=== PATIENT | female | born 1985 | race Caucasian/White ===

== ENCOUNTER 2017-05-12 08:07 | Inpatient (IN) | payer OTHER ==
[~2017-05-12 08:07] MED LIST: Dinoprostone* 10 MG VAG.SUPP VAGINAL ONE
--- NOTE | 2017-05-12 09:36 | PN ---
L&D Outpatient: Visit - Reproductive Information Estimated Due Date: 05/07/17 Gestational Age: 40 Weeks and 5 Days : 1 - Reason for Visit Visit Reason: Postdates cervical ripening in the presence of gestational hypertension - Antepartal Records Antepartal Record: Reviewed, Complicated by: - gestational hypertension at term - Patient History Patient History Significant: Yes Patient History Significant For: Anxiety L&D Outpatient: ROS - Review of Systems Constitutional: Comfortable CV Complaint: No Respiratory: Shortness of Breath: No Gastrointestinal: No Nausea/Vomiting Genitourinary: No Dysuria Musculoskeletal: No Complaint Movement: Normal Denies LA. No visual changes. No RUQ pain. No VB or spotting. No LOF L&D Outpatient: Exam - Cervical Exam Cervical Exam: 1cm/50% and softening/vtx -2 - Abdominal Exam Abdomen Exam: Non-Tender Abdomen Exam Comment: Mild, irregular UCs - Membranes Membrane Status: Intact - Ultrasound/Biophysical Profile Ultrasound Status: Not Done L&D Outpatient: EFM - External Monitor Findings Baseline Heart Rate: 120 External Monitor Findings: Accelerations Present, No Pattern of Variable or Late Decelerations, Variability Moderate External Monitor Findings Comment: No evidence of metabolic acidemia L&D Outpatient: Asses/Plan Assessment: Assessment: IUP at 40-5/7 with gestational hypertension No evidence of metabolic acidemia Plan: PARQ Cervical ripening with Cervidil vs. Misoprostol. Pt and FOB agree to trial of Cervidil. 10mg Cervidil placed per vagina at 0924. Will monitor per protocol. Remove in 12 hours or sooner PRN onset active labor, tachysystole or intolerance.
[2017-05-12 18:08] LABS: Urine Bacteria 1+ (Absent); Urine Bilirubin Negative (Negative); Urine Glucose Negative (Negative); Urine Nitrite Negative (Negative)
[2017-05-12] MEDS ORDERED: Promethazine INJ(RESTRICTED)* 25 MG/ML 1 ML VIAL IM ONE (21:16)
[2017-05-12] MEDS ORDERED: Nalbuphine* 20 MG/ML 1 ML VIAL IM ONE (21:16)
[2017-05-13] MEDS ORDERED: Misoprostol TAB* 100 MCG PO ONE (09:36)
[2017-05-13] MEDS ORDERED: Misoprostol TAB* 100 MCG ONE (09:41)
[2017-05-13] MEDS ORDERED: Buffered Lidocaine 0.9% SYRIN* 5 ML/SYR SYRINGE ONE (14:47)
[2017-05-13 14:57] LABS: Hematocrit 38 % (35-47); Hemoglobin 12.6 g/dl (12.0-16.0); Mean Corpuscular HGB Conc 33 g/dl (31-36); Mean Corpuscular Hemoglobin 31 pg (27-31); Mean Corpuscular Volume 93 fL (80-97); Red Blood Count 4.08 10^6/ul (4.0-5.4); Red Cell Distribution Width 13 % (10.5-15)
[2017-05-13 15:00] LABS: Comments Flag Yes
[2017-05-13] MEDS ORDERED: OBEPIDURAL* 250 ML ONE (15:09)
[2017-05-13] MEDS ORDERED: Phenylephrine IV* 40 MCG/ML 10 ML SYRINGE ONE (15:10)
[2017-05-13] MEDS ORDERED: Phenylephrine IV* 40 MCG/ML 10 ML SYRINGE IV PUSH PRN ×2 (15:13)
[2017-05-13] MEDS ORDERED: Sodium Citrate/Citric Acid* 15 ML UDC PO PRN (15:13)
[2017-05-13] MEDS ORDERED: EPHEDrine (Pressors)* 50 MG/ML VIAL IV PUSH PRN ×2 (15:13)
[2017-05-13] MEDS ORDERED: OBEPIDURAL* 250 ML EPIDURAL SCH (16:00)
[2017-05-13] MEDS ORDERED: Oxytocin in LR* 20 UNITS/1,000 ML BAG IVPB ONE (16:51)
[2017-05-13] MEDS ORDERED: Oxytocin in LR* 20 UNITS/1,000 ML BAG IVPB SCH ×2 (17:00→20:00)
[2017-05-13] MEDS ORDERED: Glycerin ADULT SUPP PR PRN (19:54)
[2017-05-13] MEDS: Dibucaine 1% 28.35 GM TUBE PR PRN (21:12)
[2017-05-13] MEDS: Witch Hazel PAD* JAR TOPICAL PRN (21:12)
[2017-05-13] MEDS: Acetaminophen TAB* 325 MG PO PRN (21:12)
[2017-05-13] MEDS: Docusate CAP* 100 MG PO SCH (22:06)
[2017-05-14] MEDS: Acetaminophen TAB* 325 MG PO PRN ×4 (05:01→19:59)
[2017-05-14 07:49] LABS: Hematocrit 30 % (35-47); Hemoglobin 10.1 g/dl (12.0-16.0); Mean Corpuscular HGB Conc 34 g/dl (31-36); Mean Corpuscular Hemoglobin 31 pg (27-31); Mean Corpuscular Volume 91 fL (80-97); Mean Platelet Volume 7 um3 (7.4-10.4); Red Blood Count 3.31 10^6/ul (4.0-5.4); Red Cell Distribution Width 13 % (10.5-15); White Blood Count 14.7 10^3/ul (3.5-10.8)
[2017-05-14] MEDS: Dibucaine 1% 28.35 GM TUBE PR PRN (07:55)
[2017-05-14] MEDS: Witch Hazel PAD* JAR TOPICAL PRN ×2 (07:55→19:59)
[2017-05-14] MEDS: Docusate CAP* 100 MG PO SCH ×3 (07:56→19:59)
[2017-05-14] MEDS: Ferrous Gluconate TAB* 324 MG TAB PO SCH ×2 (09:29→21:11)
--- NOTE | 2017-05-14 12:17 | PTEDU ---
Patient Name: TOBIAS DUNN TOBIAS DUNN selected video: Follow Me Mum: [employer] [facility] [employer] to view on 017 at 12:15:01 PM from [id number]
--- NOTE | 2017-05-14 12:27 | PTEDU ---
Patient Name: TOBIAS DUNN TOBIAS DUNN selected video: Follow Me Mum: [facility] to view on 017 at 12:25:04 PM [id number]
[2017-05-14] MEDS: Sulfamethox/Trimethoprim DS 800/160* TAB PO SCH (20:05)
[2017-05-15] MEDS: Acetaminophen TAB* 325 MG PO PRN ×3 (00:15→12:17)
[2017-05-15] MEDS: Docusate CAP* 100 MG PO SCH ×2 (08:49→12:17)
[2017-05-15] MEDS: Sulfamethox/Trimethoprim DS 800/160* TAB PO SCH (08:49)
[2017-05-15 11:12] VITALS: BP 148/74
[2017-05-15] MEDS: Dibucaine 1% 28.35 GM TUBE PR PRN (12:17)
== END 2017-05-15 14:14 | disposition home or self-care (01) | DRG 560 ==
LOC: MCHOBOUT 08:07 → MCHOB 21:17
PROVIDERS: ADMIT Anesthesiology; ATTEND Midwife
PROC: 3E0P7VZ Introduction of Hormone into Female Reproductive, Via Natural or Artificial Opening (ICD-10-PCS; principal; 2017-05-13)
PROC: 10E0XZZ Delivery of Products of Conception, External Approach (ICD-10-PCS; 2017-05-13)
PROC: 0KQM0ZZ Repair Perineum Muscle, Open Approach (ICD-10-PCS; 2017-05-13)
DX: O48.0 Post-term pregnancy (principal); O13.4 Gestational [pregnancy-induced] hypertension without significant proteinuria, complicating childbirth; O70.1 Second degree perineal laceration during delivery; R82.79 Other abnormal findings on microbiological examination of urine; O75.89 Other specified complications of labor and delivery; Z37.0 Single live birth; Z88.8 Allergy status to other drugs, medicaments and biological substances; Z88.0 Allergy status to penicillin; Z88.6 Allergy status to analgesic agent; Z87.891 Personal history of nicotine dependence; Z3A.40 40 weeks gestation of pregnancy
CPT/HCPCS: 36415; 59200; 81003; 81015; 85025; 85027; 86850; 86900; 86901; 87077; 87086; 87186; A9270-GY; J2300; J2550; S0191

== ENCOUNTER 2017-10-25 14:50 | Emergency (ER) | payer OTHER ==
[2017-10-25 15:40] VITALS: BP 143/87
--- NOTE | 2017-10-25 16:07 | ED ---
Throat Pain/Nasal Congestion - HPI Summary HPI Summary: 32 yr old female with the complaint of right maxillary sinus pain, pressure, nasal drainage that is tinged with green at times. She states she has been ill on and off for almost a month with cold symptoms, then sore throat and now she has pressure in the right side of maxilla. She verbalizes that she has a 5 month old and has [place] [employer] [place], and she feels she has a sinus infection setting in due to the cold symptoms prolonged and settling into her sinuses at this point. She has had a mild cough as well. - History of Current Complaint Chief Complaint: UCGeneralIllness Time Seen by Provider: 10/25/17 15:38 - Allergies/Home Medications Allergies/Adverse Reactions: Allergies Allergy/AdvReac Type Severity Reaction Status Date / Time aspirin Allergy Intermediate eyes Verified 10/25/17 15:44 itchy, swelling ibuprofen Allergy Intermediate Swelling Verified 10/25/17 15:43 Penicillins Allergy Unknown Unknown Verified 10/25/17 15:44 Reaction Details PMH/Surg Hx/FS Hx/Imm Hx Infectious Disease History: No Infectious Disease History: Denies: Traveled Outside the [place] in Last 30 Days - Family History Known Family History: Positive: None - Social History Alcohol Use: None Substance Use Type: Reports: None Smoking Status (MU): Former Smoker Have You Smoked in the Last Year: No Review of Systems Constitutional: Negative Positive: Sore Throat, Nasal Discharge, Other - sinus pain and pressure Positive: Cough All Other Systems Reviewed And Are Negative: Yes Physical Exam Triage Information Reviewed: Yes Vital Signs On Initial Exam: Initial Vitals Temp Pulse Resp BP Pulse Ox 98.6 F 97 18 143/87 100 10/25/17 15:32 10/25/17 15:32 10/25/17 15:32 10/25/17 15:32 10/25/17 15:32 Vital Signs Reviewed: Yes Appearance: Positive: Well-Appearing, No Pain Distress Skin: Positive: Warm, Skin Color Reflects Adequate Perfusion Head/Face: Positive: Normal Head/Face Inspection Eyes: Positive: EOMI, IVON ENT: Positive: Normal ENT inspection, Pharynx normal, TM red - left, Sinus tenderness - right maxillary sinus tenderness. Negative: Pharyngeal erythema Dental: Negative: Gross Decay/Caries @, Dental Fracture @, Abscess @, Cellulitis @ Neck: Positive: Supple Respiratory/Lung Sounds: Positive: Clear to Auscultation, Breath Sounds Present Cardiovascular: Positive: RRR. Negative: Murmur Abdomen Description: Negative: Distended Musculoskeletal: Positive: Strength/ROM Intact Neurological: Positive: Sensory/Motor Intact, Alert, Oriented to Person Place, Time, CN Intact II-III, Normal Gait, Speech Normal Psychiatric: Positive: Normal - Jeff Coma Scale Best Eye Response: 4 - Spontaneous Best Motor Response: 6 - Obeys Commands Best Verbal Response: 5 - Oriented Coma Scale Total: 15 Diagnostics - Vital Signs Vital Signs Temp Pulse Resp BP Pulse Ox 10/25/17 15:32 98.6 F 97 18 143/87 100 - Laboratory Lab Statement: Any lab studies that have been ordered have been reviewed, and results considered in the medical decision making process. EENT Course/Dx - Course Course Of Treatment: 32 yr old with sinusitis, and left TM redness. She is breast feeding a 5 month old. She has pencillin allergies. Will Rx with Biaxin. - Diagnoses Provider Diagnoses: Hypertension, Sinusitis, Otitis media Discharge - Sign-Out/Discharge Documenting (check all that apply): Discharge/Admit/Transfer - Discharge Plan Condition: Good Disposition: HOME Prescriptions: Clarithromycin TAB* [Biaxin 500 MG TAB*] 500 mg PO BID #20 tab Patient Education Materials: Sinusitis (ED), Ear Infection (ED), Hypertension ( ED) Referrals: Madhav Basurto MD [Primary Care Provider] - 3 Days [facility] [Outside] Additional Instructions: you should follow up for a blood pressure recheck with primary care as it is slightly elevated on the one reading here today. - Billing Disposition and Condition Condition: GOOD Disposition: HOME
== END 2017-10-25 16:13 | disposition home or self-care (01) ==
LOC: UCCORT 14:50
DX: J32.9 Chronic sinusitis, unspecified (principal); H66.90 Otitis media, unspecified, unspecified ear; I10 Essential (primary) hypertension; Z87.891 Personal history of nicotine dependence; Z88.6 Allergy status to analgesic agent; Z88.0 Allergy status to penicillin
CPT/HCPCS: 99212; G0463

== ENCOUNTER 2018-06-06 14:31 | Emergency (ER) | payer OTHER ==
[2018-06-06 16:09] VITALS: BP 143/63
--- NOTE | 2018-06-06 16:16 | UC ---
UC General HPI - HPI Summary HPI Summary: PT C/O SEVERE SINUS PRESSURE AND CONGESTION X 1.5 WEEKS. YESTERDAY DEVELOPED SINUS PAIN AND A HEADACHE. PT HAS BEEN TXING WITH OTC NASAL DECONGESTANT SPRAY AND TYLENOL COLD WITH NO RELIEF. + EAR PRESSURE AND CRACKLING WELL. - History of Current Complaint Stated Complaint: SINUS PRESSURE Time Seen by Provider: 06/06/18 15:57 Hx Obtained From: Patient Hx Last Menstrual Period: 05/30/18 Onset/Duration: Gradual Onset Timing: Constant Pain Intensity: 8 Associated Signs & Symptoms: Positive: Cough. Negative: SOB - Allergy/Home Medications Allergies/Adverse Reactions: Allergies Allergy/AdvReac Type Severity Reaction Status Date / Time aspirin Allergy Intermediate eyes Verified 06/06/18 16:00 itchy, swelling ibuprofen Allergy Intermediate Swelling Verified 06/06/18 16:00 Penicillins Allergy Unknown Unknown Verified 06/06/18 16:00 Reaction Details Home Medications: Home Medications Bcp 1 tab PO DAILY 06/06/18 [History Confirmed 06/06/18] Loratadine [Claritin] 10 mg PO DAILY 06/06/18 [History Confirmed 06/06/18] PMH/Surg Hx/FS Hx/Imm Hx Previously Healthy: Yes - Surgical History Surgical History: None - Family History Known Family History: Positive: None - Social History Occupation: Employed Full-time Lives: With Family Alcohol Use: Occasionally Substance Use Type: None Smoking Status (MU): Former Smoker Have You Smoked in the Last Year: No When Did the Patient Quit Smoking/Using Tobacco: 2015 - Immunization History Most Recent Influenza Vaccination: 03/2017 Most Recent Pneumonia Vaccination: never Vaccination Up to Date: Yes Review of Systems All Other Systems Reviewed And Are Negative: Yes Constitutional: Positive: Negative Skin: Positive: Negative Eyes: Positive: Negative ENT: Positive: Nasal Discharge, Sinus Congestion, Sinus Pain/Tenderness Respiratory: Positive: Cough Cardiovascular: Positive: Negative Gastrointestinal: Positive: Negative Genitourinary: Positive: Negative Motor: Positive: Negative Neurovascular: Positive: Negative Musculoskeletal: Positive: Negative Neurological: Positive: Negative Psychological: Positive: Negative Physical Exam Triage Information Reviewed: Yes Appearance: Well-Appearing Vital Signs: Initial Vital Signs Temp 98.5 F 06/06/18 16:04 Pulse 84 06/06/18 16:04 Resp 16 06/06/18 16:04 BP 143/63 06/06/18 16:04 Pulse Ox 100 06/06/18 16:04 Vital Signs Reviewed: Yes Eyes: Positive: Conjunctiva Clear ENT: Positive: Pharynx normal, Nasal congestion, TMs normal, Sinus tenderness. Negative: Nasal drainage Neck: Positive: Supple, Nontender, No Lymphadenopathy Respiratory: Positive: Lungs clear, Normal breath sounds Cardiovascular: Positive: RRR, No Murmur Abdomen Description: Positive: Nontender, No Organomegaly, Soft Bowel Sounds: Positive: Present Musculoskeletal: Positive: ROM Intact Neurological: Positive: Alert Psychological: Positive: Age Appropriate Behavior Skin Exam: Normal Course/Dx - Course Course Of Treatment: Pt advised to stop the nasal spray because beyond 3 days of use and the Tylenol cold medications because it is not working. I will tx with Doxycyclien(pcn allergic), po steroids and pt to consider pseudoephedrine from pharmacist. - Diagnoses Provider Diagnosis: Sinusitis Discharge - Sign-Out/Discharge Documenting (check all that apply): Patient Departure All imaging exams completed and their final reports reviewed: No Studies - Discharge Plan Condition: Stable Disposition: HOME Prescriptions: DOXYcycline CAP(*) [DOXYcycline 100MG CAP(*)] 100 mg PO BID 10 Days #20 cap predniSONE TAB* [Deltasone 20 MG TAB*] 40 mg PO DAILY 5 Days #10 tab Patient Education Materials: Sinusitis (ED) Referrals: Chu Wray MD [Primary Care Provider] - 7 Days - Billing Disposition and Condition Condition: STABLE Disposition: Home
== END 2018-06-06 16:23 | disposition home or self-care (01) ==
LOC: UCCORT 14:31
DX: J32.9 Chronic sinusitis, unspecified (principal); Z88.6 Allergy status to analgesic agent; Z88.0 Allergy status to penicillin; Z87.891 Personal history of nicotine dependence
CPT/HCPCS: 99212; G0463

== ENCOUNTER 2018-08-11 09:25 | Emergency (ER) | payer OTHER ==
[2018-08-11 12:33] VITALS: BP 129/88
--- NOTE | 2018-08-11 13:12 | UC ---
Throat Pain/Nasal Bandar HPI - HPI Summary HPI Summary: 33-year-old female presents with 4 day history of sore throat. States she was running some fever for the first couple of days of symptoms however has been fever free for the last 2 days. Associated with some mild nasal congestion and clear nasal drainage. States today she noticed that her uvula was red and swollen and felt she should be evaluated. Denies ear pain, dysphagia, chest pain, shortness of breath, cough, abdominal pain, nausea, vomiting, or diarrhea. - History of Current Complaint Chief Complaint: UCGeneralIllness Stated Complaint: ST Time Seen by Provider: 08/11/18 13:06 Hx Obtained From: Patient Hx Last Menstrual Period: 07/28/18 Pain Intensity: 3 - Allergies/Home Medications Allergies/Adverse Reactions: Allergies Allergy/AdvReac Type Severity Reaction Status Date / Time aspirin Allergy Intermediate eyes Verified 06/06/18 16:00 itchy, swelling ibuprofen Allergy Intermediate Swelling Verified 06/06/18 16:00 Penicillins Allergy Unknown Unknown Verified 06/06/18 16:00 Reaction Details Home Medications: Home Medications Norgestimate-Ethinyl Estradiol [Ortho-Cyclen 28 Tablet] 1 each PO DAILY [History Confirmed 08/11/18] PMH/Surg Hx/FS Hx/Imm Hx Previously Healthy: Yes - Denies significant PMH - Surgical History Surgical History: None - Family History Known Family History: Positive: None, Non-Contributory - Social History Occupation: Employed Full-time Lives: With Family Alcohol Use: Occasionally Substance Use Type: None Smoking Status (MU): Former Smoker Have You Smoked in the Last Year: No When Did the Patient Quit Smoking/Using Tobacco: 2015 - Immunization History Most Recent Influenza Vaccination: 03/2017 Most Recent Pneumonia Vaccination: never Vaccination Up to Date: Yes Review of Systems All Other Systems Reviewed And Are Negative: Yes Constitutional: Positive: Fever, Chills, Fatigue Skin: Negative: Rash Eyes: Negative: Drainage, Eye Redness ENT: Positive: Sore Throat, Nasal Discharge. Negative: Ear Ache, Sinus Congestion, Sinus Pain/Tenderness Respiratory: Negative: Shortness Of Breath, Cough Cardiovascular: Negative: Palpitations, Chest Pain Gastrointestinal: Negative: Abdominal Pain, Vomiting, Diarrhea, Nausea Genitourinary: Positive: Negative Musculoskeletal: Positive: Negative Neurological: Positive: Negative Is Patient Immunocompromised?: No Physical Exam - Summary Physical Exam Summary: GENERAL APPEARANCE: Well developed, well nourished, alert and cooperative, and appears to be in no acute distress. EYES: Conjunctiva clear. No drainage. Vision is grossly intact. EARS: External auditory canals and tympanic membranes clear, hearing grossly intact. NOSE: Mild nasal congestion. THROAT: Mild pharyngeal erythema. No tonsilar inflammation, swelling, exudate, or lesions. Uvula mildly erythematous and edematous but midline. Airway patent. Oral cavity normal. Teeth and gingiva in good general condition. NECK: Neck supple, non-tender without lymphadenopathy. CARDIAC: Normal S1 and S2. No S3, S4 or murmurs. Rhythm is regular. There is no peripheral edema, cyanosis or pallor. Extremities are warm and well perfused. Capillary refill is less than 2 seconds. LUNGS: Clear to auscultation without rales, rhonchi, wheezing or diminished breath sounds. ABDOMEN: Positive bowel sounds. Soft, nondistended, nontender. No guarding or rebound. No masses or hepatosplenomegally. MUSKULOSKELETAL: ROM intact to all extremities. No joint erythema or tenderness. Normal muscular development. Normal gait. SKIN: Skin normal color, texture and turgor with no lesions or eruptions. Triage Information Reviewed: Yes Vital Signs: Initial Vital Signs Temp 97.9 F 08/11/18 12:28 Pulse 83 08/11/18 12:28 Resp 17 08/11/18 12:28 BP 129/88 08/11/18 12:28 Pulse Ox 100 08/11/18 12:28 Vital Signs Reviewed: Yes Diagnostics - Laboratory Diagnostic Studies Completed/Ordered: Rapid strep negative Throat Pain/Nasal Course/Dx - Course Course Of Treatment: 33-year-old female presents with 4 day history of sore throat. States she was running some fever for the first couple of days of symptoms however has been fever free for the last 2 days. Associated with some mild nasal congestion and clear nasal drainage. States today she noticed that her uvula was red and swollen and felt she should be evaluated. Denies ear pain , dysphagia, chest pain, shortness of breath, cough, abdominal pain, nausea, vomiting, or diarrhea. Afebrile. Vital signs stable. Exam reveals an adult female in no acute distress with mild nasal congestion, pharyngeal erythema without tonsillar swelling or exudate, mildly edematous uvula, patent airway, and otherwise unremarkable exam. Rapid strep was negative. Recommending symptomatic treatment for a viral pharyngitis. She is to follow-up with her primary care provider in 7 days if symptoms do not improve. Anticipatory guidance and warning symptoms were reviewed with the patient. She verbalizes understanding and agrees with plan of care. - Differential Dx/Diagnosis Differential Diagnosis/HQI/PQRI: Influenza, Mononucleosis, Otitis Media, Pharyngitis, Sinusitis, Tonsillitis, URI Provider Diagnosis: Acute viral pharyngitis Discharge - Sign-Out/Discharge Documenting (check all that apply): Patient Departure All imaging exams completed and their final reports reviewed: No Studies - Discharge Plan Condition: Stable Disposition: HOME Patient Education Materials: Pharyngitis (ED) Referrals: Chu Wray MD [Primary Care Provider] - 7 Days (If no improvement in symptoms.) Additional Instructions: Your rapid strep test in the clinic today was negative. Your symptoms are likely from a viral infection. Viral infections do not respond to antibiotics and are limited to the treatment of symptoms. Viral infections typically run their course in 7-10 days. Drink plenty of fluids to avoid dehydration especially if you are running any fever. Use salt water gargles several times a day. Take over the counter acetaminophen (Tylenol) according to directions as needed for pain or fever. You may also use Chloraseptic spray or Cepacol lonzenges according to directions which contain a numbing medication and can provide some temporary relief from your sore throat. Return here or follow up with your primary care provider in 7 days if symptoms persist. Seek immediate medical attention in the emergency room if you have fever greater than 100.5 F despite taking acetaminophen or ibuprofen, are unable to swallow or develop drooling, are unable to open your mouth fully, are unable to eat or drink, have pain that is not relieved with over the counter pain medication, or have any difficulty breathing. - Billing Disposition and Condition Condition: STABLE Disposition: Home
== END 2018-08-11 13:35 | disposition home or self-care (01) ==
LOC: UCCORT 09:25
DX: J02.9 Acute pharyngitis, unspecified (principal); Z88.8 Allergy status to other drugs, medicaments and biological substances; Z88.0 Allergy status to penicillin; Z87.891 Personal history of nicotine dependence
CPT/HCPCS: 87651; 99211; G0463

== ENCOUNTER 2019-05-26 15:06 | Emergency (ER) | payer OTHER ==
--- OUTSIDE RECORDS SUMMARY | 2019-05-26 15:32 | XMS REPORT | Continuity of Care Document ---
:1985 External Reference #:[id number] Author Name Chu Wray MD Address [address] [place] [address] Care Team Providers Name Role Phone Chu Wray MD - Family Care Team Information Site Technician [phone] Medicine Problems Description No Information Available Social History Type Date Description Comments Sex Unknown ETOH Use Occasional Tobacco Use Start: Unknown End: Patient is a former smoker approx Smoking Status Reviewed: 12/13/17 Patient is a former smoker approx Allergies, Adverse Reactions, Alerts Active Allergies Reaction Severity Comments Date Penicillin 12/13/2017 Aspirin puffy eyes 12/13/2017 Medications Active Medications SIG Qnty Indications Ordering Date Provider Clobetasol Propionate apply 1 application 30gm Chu Dubose topically to MD Kamala 0.05% Ointment affected area 2 times per day as needed Cetirizine HCL 1 by mouth every Unknown 10mg day prn Tablets Glycopyrrolate 1 by mouth twice a Unknown 1mg day Tablets Norethindrone 1 by mouth every Unknown 0.35mg day Tablets Immunizations Description No Information Available Vital Signs Date Vital Result Comment 05/05/2019 1:53pm BP Systolic 122 mmHg BP Diastolic 74 mmHg Heart Rate 68 /min Body Temperature 98.4 F Respiratory Rate 12 /min Height 68 inches 5'8" Weight 222.00 lb BMI (Body Mass Index) 33.8 kg/m2 12/13/2017 1:40pm BP Systolic 100 mmHg BP Diastolic 60 mmHg Heart Rate 72 /min Body Temperature 98.3 F Respiratory Rate 16 /min Height 68 inches 5'8" Weight 222.00 lb BMI (Body Mass Index) 33.8 kg/m2 Results Description No Information Available Procedures Description No Information Available Medical Devices Description No Information Available Encounters Description No Information Available Assessments Date Code Description Provider 05/05/2019 K92.1 Evelina Wray MD Plan of Treatment 05/05/2019 - Chu Wray MDK92.1 MelenaAllComments:Medication Management Patient Understands medications she's taking? Yes No Are there Barriers to Adherence? Yes No Has the patient been asked about herbal supplements and therapies, and OTC meds? Yes No Functional Status Description No Information Available Mental Status Description No Information Available Referrals Refer to Reason for Referral Status Appt Date [facility] Created [address] [place] [address] [phone]
[2019-05-26 15:44] VITALS: BP 109/68
--- NOTE | 2019-05-26 15:56 | UC ---
FLU HPI - HPI Summary HPI Summary: Patient is a 34-year-old female presenting with sore throat, fatigue, body aches , chills, subjective fever, and headache 2 days. Denies nausea and vomiting. Denies nasal congestion. Notes decreased appetite. States she has taken Tylenol and DayQuil for her symptoms without relief. States concern for the flu. - History of Current Complaint Chief Complaint: UCRespiratory Stated Complaint: FEVER, HEADACHE Hx Obtained From: Patient Hx Last Menstrual Period: 05/20/19 Onset/Duration: Gradual Onset, Lasting Days Severity Initially: Moderate Pain Intensity: 7 Pain Scale Used: 0-10 Numeric - Allergy/Home Medications Allergies/Adverse Reactions: Allergies Allergy/AdvReac Type Severity Reaction Status Date / Time aspirin Allergy Intermediate eyes Verified 05/26/19 15:32 itchy, swelling ibuprofen Allergy Intermediate Swelling Verified 05/26/19 15:32 Penicillins Allergy Unknown Unknown Verified 05/26/19 15:32 Reaction Details Home Medications: Home Medications Acetaminophen [Tylenol Extra Strength] 1,000 mg PO PRN 05/26/19 [History] Clobetasol 0.05% OINT* 1 applic TOPICAL BID PRN 05/26/19 [History Confirmed ] D-Methorphan/PE/Acetaminophen [Vicks Dayquil Cold & Flu 10-5-325 mg/15Ml] 1 liq PO PRN 05/26/19 [History] Glycopyrrolate TAB(NF) [Robinul TAB(NF)] 1 mg PO DAILY 05/26/19 [History Confirmed 05/26/19] Norethindrone 0.35 mg PO DAILY 05/26/19 [History Confirmed 05/26/19] PMH/Surg Hx/FS Hx/Imm Hx - Surgical History Surgical History: None - Family History Known Family History: Positive: None, Non-Contributory - Social History Alcohol Use: Occasionally Substance Use Type: None Smoking Status (MU): Former Smoker Have You Smoked in the Last Year: No When Did the Patient Quit Smoking/Using Tobacco: 2016 - Immunization History Most Recent Influenza Vaccination: 03/2017 Most Recent Pneumonia Vaccination: never Vaccination Up to Date: Yes Review of Systems All Other Systems Reviewed And Are Negative: Yes Constitutional: Positive: Fever, Chills, Fatigue ENT: Positive: Sore Throat. Negative: Ear Ache, Nasal Discharge, Sinus Congestion Respiratory: Positive: Negative. Negative: Cough Cardiovascular: Positive: Negative Gastrointestinal: Positive: Negative Musculoskeletal: Positive: Myalgia Neurological: Positive: Headache Physical Exam Triage Information Reviewed: Yes Appearance: Well-Appearing, No Pain Distress, Well-Nourished Vital Signs: Initial Vital Signs Temp 98 F 05/26/19 15:37 Pulse 90 05/26/19 15:37 Resp 16 05/26/19 15:37 BP 109/68 05/26/19 15:37 Pulse Ox 100 05/26/19 15:37 Lab Results 05/26/19 05/26/19 Range/Units 15:49 15:57 Influenza A (Rapid) Negative (Negative) Influenza B (Rapid) Negative (Negative) Group A Strep Rapid Negative (Negative) Vital Signs Reviewed: Yes Eyes: Positive: Conjunctiva Clear ENT: Positive: Hearing grossly normal, Pharyngeal erythema, TMs normal, Uvula midline. Negative: Nasal congestion, Nasal drainage, Tonsillar swelling, Tonsillar exudate, Sinus tenderness Neck exam: Normal Neck: Positive: Supple, Nontender, No Lymphadenopathy Respiratory Exam: Normal Respiratory: Positive: Lungs clear, Normal breath sounds, No respiratory distress Cardiovascular Exam: Normal Cardiovascular: Positive: RRR Neurological: Positive: Alert Psychological: Positive: Age Appropriate Behavior Flu Course/Dx - Course Course Of Treatment: Rapid strep and flu negative. Discussed viral illness with patient and to continue with symptomatic treatment. Instructed to follow up if symptoms persist. Patient voiced understanding and agreed with treatment plan. - Differential Dx/Diagnosis Provider Diagnosis: Flu-like symptoms Discharge ED - Sign-Out/Discharge Documenting (check all that apply): Patient Departure All imaging exams completed and their final reports reviewed: No Studies - Discharge Plan Condition: Stable Disposition: HOME Patient Education Materials: Viral Syndrome (ED) Referrals: Chu Wray MD [Primary Care Provider] - If Needed Additional Instructions: As discussed, your rapid strep and flu tests were negative today. Your symptoms are most likely caused by a virus and should resolve on their own with time. You may continue to take over the counter cold medications for symptom relief. You may use throat lozenges and throat sprays and continue with tylenol as directed. Get plenty of rest and increase your fluid intake. Return or follow up with your primary care doctor if your symptoms worsen or do not resolve within 7 days. - Billing Disposition and Condition Condition: STABLE Disposition: Home
[2019-05-26 16:09] LABS: Influenza A Molecular NEGATIVE (Negative); Influenza B Molecular NEGATIVE (Negative)
== END 2019-05-26 16:23 | disposition home or self-care (01) ==
LOC: UCCORT 15:06
DX: J02.9 Acute pharyngitis, unspecified (principal); R53.83 Other fatigue; R51 Headache; R50.9 Fever, unspecified; M79.10 Myalgia, unspecified site; Z88.0 Allergy status to penicillin; Z88.6 Allergy status to analgesic agent; Z87.891 Personal history of nicotine dependence
CPT/HCPCS: 87651; 99211; G0463